=== PATIENT | female | born 1975 | race Caucasian/White ===

== ENCOUNTER 2019-02-20 00:54 | Emergency (ER) | payer OTHER ==
[~2019-02-20] VITALS: Ht 157.5 cm; Wt 79.4 kg
[2019-02-20 01:10] VITALS: BP 107/65
--- NOTE | 2019-02-20 01:22 | NUR ---
Dr. Calvillo at bedside.
--- NOTE | 2019-02-20 01:30 | NUR ---
DR RING AT BEDSIDE.
--- NOTE | 2019-02-20 01:33 | NUR ---
C/O CHEST PAIN THAT RADIATES TO ARMS, NECK AND HEAD. STATES THE PAIN HAS BEEN HAPPENING ALL DAY. NSR ON MONITOR. NO RESP DISTRESS AT THIS TIME.
[2019-02-20] MEDS ORDERED: LORazepam 2 MG/ML VIAL IM ONE (01:40)
[2019-02-20 02:18] VITALS: BP 107/65
== END 2019-02-20 02:18 | disposition home or self-care (01) ==
LOC: MED 00:54
DX: R07.89 Other chest pain (principal); G44.209 Tension-type headache, unspecified, not intractable
CPT/HCPCS: 93005; 96372; 99283; J2060

== ENCOUNTER 2019-11-23 19:12 | Emergency (ER) | payer OTHER ==
[~2019-11-23] VITALS: Ht 157.5 cm; Wt 73.5 kg
[2019-11-23 20:03] VITALS: BP 109/55
--- NOTE | 2019-11-23 20:07 | NUR ---
PT AMBULATED TO LOBBY WITH STEADY GAIT
--- NOTE | 2019-11-23 20:38 | NUR ---
44 Y/O FEMALE C/O LT EYE PAIN WITH MINOR SWELLING AND CLEAR DRAINAGE X 2 WEEKS. PT STATES LT EYE SWELLING IS WORSE IN THE MORNING. DENIES FEVER. PT STATES SLIGHT BLURRED VISION IN THE MORNING. VSS. MEDHX: DENIES ALLERGIES: NKA
--- NOTE | 2019-11-23 20:41 | NUR ---
VISUAL ACUITY-- BOTH 20/25, RT 20/20, LT 20/30
--- NOTE | 2019-11-23 20:49 | NUR ---
Patient discharged with v/s stable. Written and verbal after care instructions given and explained. Patient alert, oriented and verbalized understanding of instructions. Ambulatory with steady gait. All questions addressed prior to discharge. ID band removed. Patient advised to follow up with PMD. Rx of LORATADINE, ERYTHOMYCIN given. Patient educated on indication of medication including possible reaction and side effects. Opportunity to ask questions provided and answered.
== END 2019-11-23 20:49 | disposition home or self-care (01) ==
LOC: MED 19:12
DX: H01.006 Unspecified blepharitis left eye, unspecified eyelid (principal); H10.12 Acute atopic conjunctivitis, left eye
CPT/HCPCS: 99283

== ENCOUNTER 2023-01-02 12:32 | Emergency (ER) | payer OTHER ==
[~2023-01-02] VITALS: Ht 160 cm; Wt 75.3 kg
[2023-01-02 12:50] VITALS: BP 110/73
--- NOTE | 2023-01-02 13:05 | NUR ---
47/F PRESENTS TO ED WITH C/O NECK PAIN AND HAND PAIN WHICH SHE STATES HAS BEEN CHRONIC BUT FEELS PAIN HAS BEEN WORSENING LATELY WHILE AT WORK. DENIES RECENT INJURY OR TRAUMA, STATES SHE TOOK MOTRIN WITH SOME RELIEF.
[2023-01-02] MEDS ORDERED: KETOROLAC 30 MG/ML VIAL IM ONE (13:15)
[2023-01-02] MEDS ORDERED: LIDO1ADH47 TP (13:18)
[2023-01-02] MEDS ORDERED: NAPR-1704 PO (13:18)
--- NOTE | 2023-01-02 13:57 | NUR ---
Patient discharged with v/s stable. Written and verbal after care instructions ABOUT CERVICAL STRAIN AND SPRAIN given and explained. Patient alert, oriented and verbalized understanding of instructions. Ambulatory with steady gait. All questions addressed prior to discharge. ID band removed. Patient advised to follow up with PMD. Rx of LIDOCAINE PATCH AND NAPROXEN given. Patient educated on indication of medication including possible reaction and side effects. Opportunity to ask questions provided and answered.
== END 2023-01-02 13:57 | disposition home or self-care (01) ==
LOC: MED 12:32
DX: S16.1XXA Strain of muscle, fascia and tendon at neck level, initial encounter (principal); X58.XXXA Exposure to other specified factors, initial encounter; Y93.89 Activity, other specified; Y92.89 Other specified places as the place of occurrence of the external cause; Y99.8 Other external cause status
CPT/HCPCS: 81025; 96372; 99283; J1885

== ENCOUNTER 2024-01-12 10:29 | Emergency (ER) | payer OTHER ==
[~2024-01-12] VITALS: Ht 157.5 cm; Wt 77.7 kg
[~2024-01-12 10:29] MED LIST: LIDO1ADH47 TP; NAPR-1704 PO
[2024-01-12 10:59] VITALS: BP 99/72; PULSE 81; RESP 20; TEMP 96.7; O2SAT 99
[2024-01-12 12:32] LABS: BASOPHILS # (AUTO) 0.1 K/uL (0.00-0.22); EOSINOPHILS % (AUTO) 0.3 % (0.0-4.0); HEMATOCRIT 37.3 % (36-48); HEMOGLOBIN 12.5 g/dL (12.0-16.0); LYMPHOCYTES # (AUTO) 1.7 K/uL (2.5-16.5); LYMPHOCYTES % (AUTO) 20.3 % (20.5-51.1); MEAN CORPUSCULAR HEMOGLOBIN 29 pg (27-31); MEAN CORPUSCULAR HGB CONC 34 g/dL (33-37); MEAN CORPUSCULAR VOLUME 85.9 fL (80-94); MONOCYTES # (AUTO) 0.3 K/uL (0.8-1.0); MONOCYTES % (AUTO) 3.9 % (1.7-9.3); NEUTROPHILS # (AUTO) 6.4 K/uL (1.8-7.7); NEUTROPHILS % (AUTO) 74.5 % (42.2-75.2); PLATELET COUNT (AUTO) 258 K/uL (140-450); RED BLOOD CELL COUNT(AUTO) 4.35 MIL/uL (4.20-5.40); RED CELL DISTRIBUTION WIDTH 13.7 % (11.6-13.7); WHITE BLOOD COUNT (AUTO) 8.5 K/uL (4.8-10.8)
[2024-01-12 12:34] LABS: APPEARANCE,URINE CLEAR (CLEAR); BILIRUBIN,URINE NEGATIVE (NEGATIVE); BLOOD, URINE NEGATIVE (NEGATIVE); COLOR,URINE YELLOW (YELLOW); LEUKOCYTE ESTERASE ,URINE NEGATIVE (NEGATIVE); NITRITE, URINE NEGATIVE (NEGATIVE); PROTEIN,URINE NEGATIVE (NEGATIVE); UGLUCOSE NEGATIVE (NEGATIVE); UROBILINOGEN,URINE 0.2 EU/dL (0.2 - 1)
[2024-01-12 12:52] LABS: ALBUMIN 3.2 g/dL (3.4-5.0); ANION GAP 10.5 (8-16); CALCIUM 8.7 mg/dL (8.5-10.1); CREATININE 0.6 mg/dL (0.6-1.3); POTASSIUM 3.5 mmol/L (3.5-5.1); TOTAL BILIRUBIN 0.2 mg/dL (0.0-1.0); TOTAL PROTEIN, SERUM 7.9 g/dL (6.4-8.2)
[2024-01-12] MEDS: MORPHINE SULFATE 4 MG/ML SYR IVP ONE ×2 (13:22→16:25)
[2024-01-12] MEDS: ONDANSETRON 4 MG/2 ML VIAL IVP ONE (13:23)
[2024-01-12] MEDS: GABAPENTIN 300 MG CAP PO ONE (13:23)
[2024-01-12] MEDS: NACL 0.9% 1,000 ML IV ONE (13:42)
[2024-01-12] MEDS ORDERED: IBUP-2213 PO (15:59)
[2024-01-12] MEDS ORDERED: LID5T TP (15:59)
[2024-01-12] MEDS ORDERED: CYCL-711 PO (15:59)
[2024-01-12] MEDS: KETOROLAC 30 MG/ML VIAL IVP ONE (16:22)
[2024-01-12] MEDS: CYCLOBENZAPRINE 10 MG TAB PO ONE (16:44)
[2024-01-12 16:50] VITALS: BP 123/70; PULSE 70; RESP 16; TEMP 98; O2SAT 99
== END 2024-01-12 16:48 | disposition home or self-care (01) ==
LOC: MED 10:29
DX: M54.6 Pain in thoracic spine (principal); Z90.710 Acquired absence of both cervix and uterus; Z79.899 Other long term (current) drug therapy; Z88.8 Allergy status to other drugs, medicaments and biological substances
CPT/HCPCS: 36415; 70450; 71045; 71275; 80053; 81003; 83690; 84484; 85025; 93005; 96361; 96374; 96375; 99285; J1885; J2270; J2405; J7030; Q9967

== ENCOUNTER 2024-06-07 09:30 | Emergency (ER) | payer OTHER ==
[~2024-06-07] VITALS: Ht 154.9 cm; Wt 77.8 kg
[~2024-06-07 09:30] MED LIST changes: +CYCL-711 PO; +IBUP-2213 PO; +LID5T TP
[2024-06-07 09:35] VITALS: BP 118/67; PULSE 80; RESP 16; TEMP 97; O2SAT 97
[2024-06-07 09:56] VITALS: O2SAT 97
[2024-06-07] MEDS ORDERED: methylPREDNISolone SS 40 MG in WATER STERILE 1 ML IM ONE (10:00)
[2024-06-07] MEDS ORDERED: methylPREDNISolone SS 40 MG/ML VIAL ONE (10:04)
[2024-06-07] MEDS ORDERED: WATER STERILE 10 ML MC ONE (10:04)
[2024-06-07] MEDS: KETOROLAC 30 MG/ML VIAL IM ONE (10:10)
[2024-06-07] MEDS: HYDROcodone/APAP 5/325 MG 1 TAB TAB PO ONE (10:11)
[2024-06-07] MEDS ORDERED: CYCL-711 PO (11:04)
[2024-06-07] MEDS ORDERED: NAPR-1704 PO (11:04)
[2024-06-07] MEDS ORDERED: GABA-636 PO (11:04)
[2024-06-07] MEDS ORDERED: DICL100G32 TP (11:04)
[2024-06-07 12:29] VITALS: BP 118/67; PULSE 80; RESP 16; TEMP 97; O2SAT 97
== END 2024-06-07 11:50 | disposition home or self-care (01) ==
LOC: MED 09:30
DX: M54.42 Lumbago with sciatica, left side (principal); Z79.899 Other long term (current) drug therapy; Z88.8 Allergy status to other drugs, medicaments and biological substances
CPT/HCPCS: 96372; 99283; J1885; J2920